=== PATIENT | male | born 1935 | race Caucasian/White ===

== ENCOUNTER 2019-03-24 12:29 | Emergency (ER) | payer MEDICARE, BC ==
[2019-03-24 12:41] VITALS: BP 176/96; PULSE 93
[2019-03-24] MEDS ORDERED: Sodium Chloride 0.9% 1,000 ML IV SCH (12:45)
--- NOTE | 2019-03-24 12:53 | EDM.PDOC ---
ED HPI GENERAL MEDICAL PROBLEM - General Chief Complaint: Neuro Symptoms/Deficits Stated Complaint: [facility] Time Seen by Provider: 03/24/19 12:38 Source of Information: Reports: Patient, Family (spouse) History Limitations: Reports: No Limitations - History of Present Illness INITIAL COMMENTS - FREE TEXT/NARRATIVE: 83-year-old male arrives in the ED per [place] [facility]. Apparently he was out to [place] with his coffee bodies this morning and had no problems. Shortly after arriving back home and sitting in his easy chair he complained of sudden onset of a severe frontal headache that seemed to make his vision blurred in both eyes. Denies any headache in the base of his neck. He states the headache lasted for about an hour and is now gone. His vision is also improved. He stayed in the chair did not try to walk. His reports that his speech was slurred or dysarthric as well. This seems to be improved at the time of quick exam when he entered the ED. Patient reports that he is on some form of blood thinner but can't remember what. Her medics indicate that he was completely disoriented to person place and time. He could remember his pharmacy at the time of exam [facility]. Patient's is now here. She indicates that he started to moan and groan and this would brought her to his side while he was in his easy chair. He started crying because of the intensity of the headache. The history suggests he rarely gets a headache. She went and got him to Tylenol Extra Strength tablets and he was able to take them. She reports that he moan and groan mostly he would not talk for the first 25 minutes or so. Paramedics were then summoned. His speech came out garbled or dysphasic.? Just that he was expressing trouble coming up with the right words. I.e. expressive aphasia. She does report that he is currently on Eliquis for chronic atrial fibrillation. We are currently getting his med list from [facility]. No past history of stroke. Patient has multiple risk factors for CVA including type 2 diabetes mellitus. Chronic atrial fibrillation. Chronic hypertension. Known atherosclerosis. Patient was to the eye doctor this morning because of glaucoma. No changes were made to his medications and no eyedrops were apparently utilized. Onset: Today Onset Date: 03/24/19 Onset Time: 11:50 Duration: Minutes: Location: Reports: Head (Diffuse frontal headache which is subsequently resolved. Associated stroke symptoms with expressive aphasia.) Quality: Reports: Other ( This is some vascular resolved as well. headache was very intense across his forehead. States that it is now gone. ) Severity: Severe (Headache was classified as severe tenderness 10.) Improves with: Reports: Other Worsens with: Reports: None (Seem to gotten better on its own or with the aid of Tylenol Extra Strength.) Context: Reports: Other (Spontaneous occurrence while seated in his easy chair at home apparently sleeping.). Denies: Activity, Exercise, Lifting, Sick Contact, Trauma Associated Symptoms: Reports: Confusion (Transient confusion problems with memory and apparently some expressive aphasia), Headaches (Apparently had a severe headache this morning and he rarely gets a headache.), Other (Expressive aphasia according to the . This is now resolved.). Denies: Chest Pain ( identified by the .), Cough, cough w sputum, Diaphoresis, Fever/Chills, Loss of Appetite, Malaise, Nausea/Vomiting, Rash, Seizure, Shortness of Breath, Syncope, Weakness Treatments IRON ASSORTER: Reports: Acetaminophen (2 Tylenol Extra Strength given to him about an hour ago.) Headache Pain Score (Numeric/FACES): 1 - Related Data Allergies Allergy/AdvReac Type Severity Reaction Status Date / Time No Known Allergies Allergy Verified 03/12/15 01:24 Home Meds: Home Meds Exenatide Microspheres [Bydureon] 2 mg PO DAILY 03/12/15 [History] Glimepiride 0.5 mg PO DAILY 03/12/15 [History] Lisinopril 5 mg PO DAILY 03/12/15 [History] Metoprolol Succinate [Toprol XL] 50 mg PO DAILY 03/12/15 [History] Simvastatin [Zocor] 40 mg PO DAILY 03/12/15 [History] Tamsulosin [Flomax] 0.4 mg PO DAILY 03/12/15 [History] Apixaban [Eliquis] 5 mg PO BID 03/24/19 [History] Dorzolamide/Timolol/Pf [Dorzolamide-Timolol 2%-0.5%] 1 drop EYEBOTH BID [History] Furosemide [Lasix] 20 mg PO ASDIRECTED 03/24/19 [History] Levothyroxine 75 mcg PO ACBREAKFAST 03/24/19 [History] Travoprost [Travatan Z] 5 ml EYEBOTH DAILY 03/24/19 [History] Past Medical History HEENT History: Reports: Glaucoma (Losing peripheral vision in his left eye due to glaucoma.) Cardiovascular History: Reports: Afib (Chronic atrial fibrillation and is on Eliquis), CAD, Heart Failure, High Cholesterol, Hypertension ( as a blood thinners.) Endocrine/Metabolic History: Reports: Diabetes, Type II (Controlled with subcutaneous medication as well as orals.) Social & Family History - Living Situation & Occupation Living situation: Reports: Occupation: Retired ED ROS GENERAL - Review of Systems Review Of Systems: See Below Constitutional: Reports: Malaise, Fatigue. Denies: Fever, Chills, Decreased Appetite, Weight Loss HEENT: Reports: Glasses, Other (Has known glaucoma losing peripheral vision in his left eye.) Respiratory: Reports: No Symptoms Cardiovascular: Reports: Blood Pressure Problem, Dyspnea on Exertion, Edema ( Chronically in both lower legs.). 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 Has bilateral hip pain. 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 Bruises easily doing to being on aliquots.) Neurological: Reports: Confusion, Headache (This morning only.), Difficulty Walking, Change in Speech. Denies: Dizziness, Numbness, Paresthesia, Pre- Existing Deficit (Due to bad knees.), Seizure, Syncope, Tingling ( Severe headache this morning.), Tremors, Trouble Speaking, Weakness Psychiatric: Reports: No Symptoms (Clearly has expressive aphasia garbled speech that didn't make sense this morning.) Hematologic/Lymphatic: Reports: No Symptoms Immunologic: Reports: No Symptoms ED EXAM, NEURO - Physical Exam Exam: See Below Exam Limited By: No Limitations General Appearance: Alert, WD/WN, Anxious, Mild Distress, Other (Mildly anxious. Temperature is 35.9 which is unlikely to be correct. Pulse is 93 and his aortofemoral monitor. Heart rate is 17 sats 97% on room air initial blood pressure was elevated 1 [id number].) Eye Exam: Bilateral Eye: PERRL (Pupils are dilated at 8 mm bilaterally due to drops used for glaucoma.) Throat/Mouth: Normal Inspection, Normal Lips, Normal Oropharynx, Other Head Exam: Atraumatic (Tonsils are absent. Uvula is in the midline.), Normocephalic Neck: Normal Inspection, Supple, Non-Tender, Full Range of Motion, Tender Lateral. No: Lymphadenopathy (L), Lymphadenopathy (R) Respiratory/Chest: No Respiratory Distress, Lungs Clear, Normal Breath Sounds, No Accessory Muscle Use (Mild tenderness lateral cervical spine but has full range of motion.) Cardiovascular: Regular Rate, Rhythm, No Gallop (Atrial fibrillation on the monitor at 93/m.), No Murmur. No: Normal Peripheral Pulses, No Edema GI/Abdominal: Normal Bowel Sounds, Soft, Non-Tender, No Organomegaly, No Abnormal Bruit, No Mass, Pelvis Stable Neurological: Alert, Normal Mood/Affect, Normal Dorsiflexion, CN II-XII Intact, Normal Plantar Flexion, No Motor/Sensory Deficits, Oriented x 3, Other (Patient has normal motor power and tone in upper and lower extremities. Rapid alternating movements finger to nose and no pronator drift identified.). No: Normal Reflexes DTR: 0: Patella (R) (Possibly due to bilateral knee prostheses.), Patella (L), Achilles (R), Achilles (L), 1+: Bicep (R), Bicep (L) Back Exam: Normal Inspection, Full Range of Motion. No: CVA Tenderness (L), CVA Tenderness (R) Extremities: Pedal Edema ( 1+ pitting edema both lower extremities.), Other ( Venous stasis dermatitis both lower extremities mild.) Psychiatric: Normal Affect, Normal Mood Skin Exam: Warm, Dry, Normal Color, No Rash EKG INTERPRETATION EKG Date: 03/24/19 Time: 13:17 Rhythm: NSR Rate (Beats/Min): 94 [place]: LAD-Left [place] Deviation (-85 has a left anterior fascicular block pattern.) P-Wave: Present (First-degree AV block) QRS: Other (Has markedly decreased voltage in the precordial leads and mildly in the limb leads as well. 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 Very poor R-wave progression precordial leads.) ST-T: Other QT: Prolonged (Moderately prolonged.) EKG Interpretation Comments: Abnormal ECG Course - Vital Signs Last Recorded V/S: Last Vital Signs Temp 35.9 C 03/24/19 12:39 Pulse 93 03/24/19 12:39 Resp 17 03/24/19 12:39 BP 176/96 H 03/24/19 12:39 Pulse Ox 97 03/24/19 12:39 - Orders/Labs/Meds Orders: Active Orders 24 hr Category Date Time Status EKG Documentation Completion [RC] STAT Care 03/24/19 12:41 Active Sodium Chloride 0.9% [Normal Saline] 1,000 ml Med 03/24/19 12:45 Active IV ASDIRECTED Sodium Chloride 0.9% [Normal Saline] 100 ml Med 03/24/19 13:45 Active IV ASDIRECTED Medication Orders Sodium Chloride (Normal Saline) 1,000 mls @ 75 mls/hr IV ASDIRECTED TROY Last Admin: 03/24/19 13:00 Dose: 75 mls/hr Sodium Chloride (Normal Saline) 100 mls @ 60 mls/hr IV ASDIRECTED TROY Last Admin: 03/24/19 14:17 Dose: 60 mls/hr Labs: Laboratory Tests 03/24/19 03/24/19 03/24/19 Range/Units 12:45 12:45 12:45 WBC 7.83 (4.23-9.07) K/mm3 RBC 5.10 (4.63-6.08) M/mm3 Hgb 14.7 (13.7-17.5) gm/dl Hct 44.5 (40.1-51.0) % MCV 87.3 (79.0-92.2) fl MCH 28.8 (25.7-32.2) pg MCHC 33.0 (32.2-35.5) g/dl RDW Std Deviation 44.6 H (35.1-43.9) fL Plt Count 218 (163-337) K/mm3 MPV 9.9 (9.4-12.3) fl Neut % (Auto) 56.0 (34.0-67.9) % Lymph % (Auto) 31.2 (21.8-53.1) % [place] % (Auto) 8.4 (5.3-12.2) % Eos % (Auto) 3.8 (0.8-7.0) Baso % (Auto) 0.5 (0.1-1.2) % Neut # (Auto) 4.38 (1.78-5.38) K/mm3 Lymph # (Auto) 2.44 (1.32-3.57) K/mm3 [place] # (Auto) 0.66 (0.30-0.82) K/mm3 Eos # (Auto) 0.30 (0.04-0.54) K/mm3 Baso # (Auto) 0.04 (0.01-0.08) K/mm3 PT 11.5 (9.7-12.0) SECONDS INR 1.06 APTT 29 (22-31) SECONDS Sodium 142 (136-145) mEq/L Potassium 4.0 (3.5-5.1) mEq/L Chloride 105 (98-107) mEq/L Carbon Dioxide 28 (21-32) mEq/L Anion Gap 13.0 (5-15) BUN 17 (7-18) mg/dL Creatinine 1.1 (0.7-1.3) mg/dL Est Cr Clr Drug Dosing 60.28 mL/min Estimated GFR (MDRD) > 60 (>60) mL/min BUN/Creatinine Ratio 15.5 (14-18) Glucose 86 (83-115) mg/dL Calcium 9.4 (8.5-10.1) mg/dL Magnesium 2.0 (1.8-2.4) mg/dl Total Bilirubin 0.7 (0.2-1.0) mg/dL AST 16 (15-37) U/L ALT 25 (16-63) U/L Alkaline Phosphatase 171 H (46-116) U/L C-Reactive Protein < 0.2 (<1.0) mg/dL NT-Pro-B Natriuret Pep (0-450) pg/mL Total Protein 6.7 (6.4-8.2) g/dl Albumin 3.6 (3.4-5.0) g/dl Globulin 3.1 gm/dL Albumin/Globulin Ratio 1.2 (1-2) 10/25/19 Range/Units 12:45 WBC (4.23-9.07) K/mm3 RBC (4.63-6.08) M/mm3 Hgb (13.7-17.5) gm/dl Hct (40.1-51.0) % MCV (79.0-92.2) fl MCH (25.7-32.2) pg MCHC (32.2-35.5) g/dl RDW Std Deviation (35.1-43.9) fL Plt Count (163-337) K/mm3 MPV (9.4-12.3) fl Neut % (Auto) (34.0-67.9) % Lymph % (Auto) (21.8-53.1) % [place] % (Auto) (5.3-12.2) % Eos % (Auto) (0.8-7.0) Baso % (Auto) (0.1-1.2) % Neut # (Auto) (1.78-5.38) K/mm3 Lymph # (Auto) (1.32-3.57) K/mm3 [place] # (Auto) (0.30-0.82) K/mm3 Eos # (Auto) (0.04-0.54) K/mm3 Baso # (Auto) (0.01-0.08) K/mm3 PT (9.7-12.0) SECONDS INR APTT (22-31) SECONDS Sodium (136-145) mEq/L Potassium (3.5-5.1) mEq/L Chloride (98-107) mEq/L Carbon Dioxide (21-32) mEq/L Anion Gap (5-15) BUN (7-18) mg/dL Creatinine (0.7-1.3) mg/dL Est Cr Clr Drug Dosing mL/min Estimated GFR (MDRD) (>60) mL/min BUN/Creatinine Ratio (14-18) Glucose (83-115) mg/dL Calcium (8.5-10.1) mg/dL Magnesium (1.8-2.4) mg/dl Total Bilirubin (0.2-1.0) mg/dL AST (15-37) U/L ALT (16-63) U/L Alkaline Phosphatase (46-116) U/L C-Reactive Protein (<1.0) mg/dL NT-Pro-B Natriuret Pep 73 (0-450) pg/mL Total Protein (6.4-8.2) g/dl Albumin (3.4-5.0) g/dl Globulin gm/dL Albumin/Globulin Ratio (1-2) Meds: Medications Generic Name Dose Route Start Last Admin Trade Name Freq PRN Reason Stop Dose Admin Sodium Chloride 1,000 mls @ 75 mls/hr 03/24/19 12:45 03/24/19 13:00 Normal Saline IV 75 mls/hr ASDIRECTED TROY Administration Sodium Chloride 100 mls @ 60 mls/hr 03/24/19 13:45 03/24/19 14:17 Normal Saline IV 60 mls/hr ASDIRECTED TROY Administration Discontinued Medications Generic Name Dose Route Start Last Admin Trade Name Freq PRN Reason Stop Dose Admin Iopamidol 100 ml 03/24/19 13:34 03/24/19 14:17 Isovue-370 (76%) IVPUSH 03/24/19 13:35 100 ml ONETIME ONE Administration Sodium Chloride 10 ml 03/24/19 13:34 03/24/19 14:17 Saline Flush FLUSH 03/24/19 13:35 10 ml ONETIME ONE Administration - Radiology Interpretation Free Text/Narrative:: 83-year-old male presents to the ED per ambulance after they were summoned to the home where patient was complaining of the severe headache. also commented that his moaning and groaning and crying due to the intensity of pain. This occurred spontaneously while he was sleeping in his easy chair. Known well time was approximately 1130 hrs. this morning. He had been out to the finance business partner for an appointment and then went for coffee with his friends at [facility] with no problems. He rarely gets a headache. She had given him 2 Tylenol to strength tablets for his headache and that the time he arrived in the ED has headache was gone. He appreciated that it really seem to bother his vision in terms that they worse severe blurriness and he didn't ever try to get up and walk when he had the headache. His knowledge no drops are placed in his eyes this morning at the finance business partner appointment. Neuro exam is completely normal at the time of arrival in the ED. He is on Eliquis. He was sent immediately for CT of the head due to the sudden onset of severe frontal headache. - Re-Assessments/Exams Free Text/Narrative Re-Assessment/Exam: 03/24/19 13:00: CT of the head reveals appropriate degenerative changes with prominent sulci and lateral ventricles. There was no intracranial bleeding or mass effect identified. There is some mild right frontal sinusitis as well as some sinusitis in the ethmoid sinuses. This appears to be chronic. No acute intracranial abnormality appreciated. Routine labs and chest x-ray and ECG to be done. He will have CT angiogram of his head and neck performed if kidney function is okay. 03/24/19 13:26 Labs reveal a normal white count at 7.83. Auto differential shows 56% neutrophils. Hemoglobin is 14.7 with hematocrit of 44.5. Clinically count 218,000. PT is 11.5 with an INR of 1.06. PTT is 29. Sodium 142 with a potassium of 4.0. Chloride 105 with a bicarbonate of 28. Anion gap is 13.0. BUN is 17 with a creatinine of 1.1. GFR is greater than 60. Glucose is 86 calcium is 9.4. Magnesium 2.0 with a bilirubin of 0.7. Liver function otherwise normal other than an elevated alkaline phosphatase days at 171. C-reactive protein is less than 0.2. Total protein is 6.7 with albumin fraction of 3.6. Renal function is good enough to allow contrast. He will have CT angiographic with head and neck. CT angiogram of the brain reveals both distal vertebral arteries to be patent into the basilar artery. Posterior cerebral arteries are patent. Middle cerebral arteries and anterior cervical hours are patent as well. No occlusion or focal stenosis is seen. No discrete aneurysm is appreciated. Discussed the findings with the patient and family. He will be allowed to get up and walk and make sure that his balance and mobility is normal. 03/24/19 16:10: Patient ambulates perfectly normally. He has no neurological deficits on repeat neuro exam. I did discuss case with Dr. Hernandez neurologist at [facility] in [place] and she agreed there wasn't really much else to do at this point time. Since he's already on Eliquis it's highly unlikely that he would've developed any embolus within his heart to have caused current symptoms. 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 Patient indicates that he was eating jalapeno peppers just prior to the development of the headache. He will return to medical care if any further similar problems occur. No changes in medication to be made at this time. Departure - Departure Time of Disposition: 15:30 Disposition: Home, Self-Care 01 Condition: Fair Clinical Impression: Transient ischemic attack Headache Qualifiers: Headache type: unspecified Headache chronicity pattern: acute headache Intractability: not intractable Qualified Code(s): R51 - Headache - Discharge Information *PRESCRIPTION DRUG MONITORING PROGRAM REVIEWED*: Not Applicable *COPY OF PRESCRIPTION DRUG MONITORING REPORT IN PATIENT ASHLYN: Not Applicable Instructions: Transient Ischemic Attack, [id number] Referrals: Robi Herrera MD [Primary Care Provider] - Forms: ED Department Discharge Additional Instructions: Evaluation in the emergency room today in regards to acute onset of severe headache with associated neurological symptoms with crying i.e. inability to control emotions and inability to speak normally which we call expressive aphasia in terms of the words well, right. This seemed to be associated with some disorientation to person place and time when the paramedics arrived. Headache went away completely by the time you arrived in the ED perhaps from the Tylenol taken at home earlier. Neuro exam after the CT scan was done was completely normal. Scan shows normal age-appropriate changes but did not show any sign of bleeding into the brain or mass effect. It's your labs came back proving your kidney function was normal you had CT angiogram of the head and neck which means we filled all the blood vessels in the head neck and brain with contrast media and made sure there was no blockage or aneurysm and none was found. The amount of blockage you have in the left internal carotid artery is 20-30% and anything less than 50% is considered excellent at your age. Was only 10% blockage on the right side. Her heart was in regular sinus rhythm today. Therefore to unlikely at this point time of any clot was identified within your heart to travel up into her brain to caused you headache and strokelike symptoms. Therefore at this time I'm not able to state that she did not suffer a severe atypical migraine headache because of the associated neurological deficits versus a transient ischemic attack. This means strokelike symptoms that last only for a short duration. At any rate no changes to medications are to be made since you're already on blood thinner Eliquis. Suggest follow-up with your personal care physician in 10 days' time. If any similar symptoms occur of course return immediately to the ER. - My Orders Last 24 Hours: My Active Orders 03/24/19 12:41 EKG Documentation Completion [RC] STAT 03/24/19 12:45 Sodium Chloride 0.9% [Normal Saline] 1,000 ml IV ASDIRECTED 03/24/19 13:45 Sodium Chloride 0.9% [Normal Saline] 100 ml IV ASDIRECTED - Assessment/Plan Last 24 Hours: My Active Orders 03/24/19 12:41 EKG Documentation Completion [RC] STAT 03/24/19 12:45 Sodium Chloride 0.9% [Normal Saline] 1,000 ml IV ASDIRECTED 03/24/19 13:45 Sodium Chloride 0.9% [Normal Saline] 100 ml IV ASDIRECTED
--- NOTE | 2019-03-24 13:06 | CT ---
Head CT Technique: Multiple axial sections through the brain were obtained. Intravenous contrast was not utilized. Comparison: Prior noncontrast head CT exam of 03/15/12. Findings: Ventricles along with basal cisterns and sulci over the convexities are moderately prominent. Mild atherosclerotic calcification within the vertebral vessels and carotid siphon is seen. No abnormal parenchymal densities are seen. No evidence of intracranial hemorrhage. No midline shift or mass effect is seen. Mucosal thickening is seen within portions of the ethmoid sinus and right frontal sinus. Mastoid sinuses are clear. No acute calvarial abnormality is seen. Impression: 1. Senescent change as noted above. 2. Sinus findings which are most likely chronic. 3. No acute intracranial abnormality is appreciated. Diagnostic code #2
[2019-03-24] MEDS ORDERED: Sodium Chloride 0.9% 10 ML Syringe FLUSH ONE (13:34)
[2019-03-24] MEDS ORDERED: Iopamidol 755 Mg/ML 100 ML Bottle IVPUSH ONE (13:34)
[2019-03-24] MEDS ORDERED: Sodium Chloride 0.9% 100 ML IV SCH (13:45)
--- NOTE | 2019-03-24 14:10 | CR ---
Chest: Portable view of the chest was obtained. Comparison: Prior chest x-ray of 03/15/12. Heart size is normal. Tortuous thoracic aorta is seen. Right shoulder prosthesis is seen. Lungs are clear with no acute parenchymal change. Impression: 1. Nothing acute is appreciated on portable chest x-ray. Diagnostic code #2
--- NOTE | 2019-03-24 14:31 | CT ---
CT neck angiogram Technique: Multiple axial sections through the neck were obtained. Intravenous contrast was given. Study performed as a CT angiogram protocol. Multiple MIP images were obtained. Findings: Both vertebral arteries are patent. Common carotid arteries are patent. There is calcified plaque being seen within the carotid bulb and proximal internal carotid arteries. Mild narrowing is seen of the proximal internal carotid arteries by 20-30% on the left side and less than 10% on the right side. Other portions of the internal carotid artery are patent into the carotid siphon. Proximal external carotid arteries are patent. Impression: 1. Mild atheromatous changes as noted above. Mild stenosis within the proximal internal carotid arteries as noted above. Diagnostic code #3
--- NOTE | 2019-03-24 14:31 | CT ---
CT brain angiogram Technique: Multiple axial sections through the brain were obtained. Intravenous contrast was utilized. Study performed as an angiogram protocol. Comparison: No previous brain angiogram. Findings: Both distal vertebral arteries are patent into the basilar artery. Posterior cerebral arteries are patent. Middle cerebral arteries and anterior cerebral arteries are patent. No occlusion or focal stenosis is seen. No discrete aneurysm is appreciated. Impression: 1. No abnormality is identified on CT angiogram of the brain. Diagnostic code #1
== END 2019-03-24 15:45 | disposition home or self-care (01) ==
LOC: SUPCPDRO 12:29 → JD.ED 12:29
DX: G45.9 Transient cerebral ischemic attack, unspecified (principal); I48.20 Chronic atrial fibrillation, unspecified; E11.9 Type 2 diabetes mellitus without complications; I11.0 Hypertensive heart disease with heart failure; I50.9 Heart failure, unspecified; H40.9 Unspecified glaucoma; I25.10 Atherosclerotic heart disease of native coronary artery without angina pectoris; E78.00 Pure hypercholesterolemia, unspecified; Z79.899 Other long term (current) drug therapy; Z79.84 Long term (current) use of oral hypoglycemic drugs; Z79.01 Long term (current) use of anticoagulants
CPT/HCPCS: 36415; 70450; 70496; 70498; 71045; 80053; 83735; 83880; 85025; 85610; 85730; 86140; 93005; 96360; 96361; 99285; J7030; J7040; Q9967